=== PATIENT | female | born 1975 | race Hispanic/Latino ===

== ENCOUNTER 2017-04-16 23:54 | Emergency (ER) | payer MEDICAID ==
[~2017-04-16] VITALS: Ht 154.9 cm; Wt 86.2 kg
[2017-04-17] MEDS ORDERED: MUCINEX D ER T1 EACH PO (00:07)
[2017-04-17] MEDS ORDERED: GUAIFENESIN AC473 ML PO (00:21)
== END 2017-04-17 00:30 | disposition home or self-care (01) ==
LOC: ED 23:54
DX: J45.909 Unspecified asthma, uncomplicated (principal); Z87.891 Personal history of nicotine dependence; Z88.1 Allergy status to other antibiotic agents; Z98.51 Tubal ligation status; Z79.2 Long term (current) use of antibiotics
CPT/HCPCS: 99283